=== PATIENT | female | born 1995 | race Caucasian/White ===

== ENCOUNTER 2021-03-30 10:31 | Emergency (ER) | payer OTHER, SELFPAY ==
[2021-03-30 10:46] VITALS: BP 112/72; PULSE 70; RESP 14; TEMP 36.7; O2SAT 97; BMI 26.6
--- NOTE | 2021-03-30 11:04 | ED_ITS ---
HPI - Abdominal Pain General Chief Complaint: Abdominal Pain Stated Complaint: stomach pain-right side, throwing up, cold sweats Time Seen by Provider: 03/30/21 10:50 Source: patient Mode of arrival: Ambulatory Limitations: no limitations History of Present Illness HPI narrative: 25-year-old female daily smoker with noncontributory medical history presents with a chief complaint of gradually worsening abdominal pain over the past day or 2. She states it started around her middle abdomen and now has settled in her right lower quadrant. It is worse when she moves and improves with rest. She denies any radiation of her pain. She denies any fever or chills. She has been nauseated but denies any vomiting. She denies any change in bowel habits such as constipation or diarrhea. She denies dysuria, frequency or urgency. She denies any vaginal bleeding or discharge. Last menstrual period was 2 weeks ago and normal. Related Data Previous Rx's Medication Instructions Recorded doxycycline hyclate 100 mg tablet 100 mg PO BID #20 tab 03/30/21 fluconazole 150 mg tablet 150 mg PO Q3D #2 tab 03/30/21 metronidazole 500 mg tablet 500 mg PO TID 10 Days #30 tab 03/30/21 Allergies Allergy/AdvReac Type Severity Reaction Status Date / Time No Known Drug Allergies Allergy Verified 03/30/21 10:49 Review of Systems Review of Systems Narrative: GENERAL: Denies chills, fatigue, malaise, fever, sweats. HEENT: Denies sinus pain, ear pain, sore throat, difficulty swallowing, dizziness. RESPIRATORY: Denies dyspnea, cough, wheezing, hemoptysis, sputum. CARDIOVASCULAR: Denies chest pain, palpitations, orthopnea, edema, GASTROINTESTINAL: See HPI : Denies dysuria, frequency, incontinence, hematuria, urinary retention. MUSCULOSKELETAL: denies weakness, joint pain, or bony pain SKIN: Denies rash, skin lesions, or other NEUROLOGIC: Denies weakness, headache, numbness, change in speech, confusion, seizures, incoordination. PSYCHIATRIC: No concerning psychosocial issues. Patient History Social History Smoking Status: Never smoker Smoking Status: Never smoker alcohol intake frequency: 0-2 drinks per day Substance Use Type: does not use Exam Narrative Exam Narrative: GENERAL: [26] year old patient appears stated age. Well-developed patient, in mild distress. HEAD: Atraumatic. Normocephalic. EYES: Pupils equal round and reactive. Extraocular motions intact. No scleral icterus. No injection or drainage. ENT: Nose without bleeding, purulent drainage. Throat without erythema, tons illar hypertrophy or exudate. Airway patent. NECK: Trachea midline. Non tender CARDIOVASCULAR: Regular rate and rhythm without murmurs, gallops, or rubs. RESPIRATORY: Clear to auscultation. Breath sounds equal bilaterally. No wheezes, rales, or rhonchi. GASTROINTESTINAL: Abdomen soft, tender in right lower quadrant with voluntary guarding and mild localized peritonitis. Positive Rovsing's and heel tap as well as obturator EXTREMITIES: No edema or joint tenderness. BACK: Nontender without deformity or crepitance. No flank tenderness. NEURO: AOx3. SKIN: No rash or erythema of visible areas Initial Vital Signs Initial Vital Signs: Vital Signs Temperature 98.1 F 03/30/21 10:46 Pulse Rate 70 03/30/21 10:46 Respiratory Rate 14 03/30/21 10:46 Blood Pressure 112/72 03/30/21 10:46 Pulse Oximetry 97 03/30/21 10:46 Course Orders Ordered: Discontinued Medications Ceftriaxone Sodium (Ceftriaxone 1,000 Mg Vial) 500 mg IV NOW ONE Stop: 03/30/21 15:16 Last Admin: 03/30/21 21:10 Dose: Not Given Documented by: FIGUEROA Sodium Chloride (Normal Saline 0.9%) 1,000 mls @ 1,000 mls/hr IV BOLUS ONE Stop: 03/30/21 12:33 Last Infusion: 03/30/21 12:49 Dose: 0 mls/hr Documented by: Admin: 03/30/21 11:50 Dose: 1,000 mls/hr Documented by: BETHANY Ceftriaxone Sodium 500 mg/ (Dextrose) 50 mls @ 100 mls/hr IV NOW ONE Stop: 03/30/21 15:07 Last Infusion: 03/30/21 15:34 Dose: 0 mls/hr Documented by: Admin: 03/30/21 15:22 Dose: 100 mls/hr Documented by: BETHANY Ondansetron HCl (Ondansetron 4 Mg/2 Ml Inj) 4 mg IV NOW ONE Stop: 03/30/21 10:50 Last Admin: 03/30/21 11:50 Dose: 4 mg Documented by: BETHANY Vital Signs Vital signs: Vital Signs - 8 hr 03/30/21 10:46 03/30/21 15:33 Temperature 98.1 F Pulse Rate 70 77 Respiratory Rate 14 16 Blood Pressure 112/72 123/74 Pulse Oximetry 97 97 MDM - Abdominal Pain Lab Data Result diagrams: 03/30/21 11:35 03/30/21 11:35 Labs: Lab Results 03/30/21 03/30/21 03/30/21 Range/Units 11:35 11:35 11:35 WBC 5.8 (4.5-11.0) X10^3/uL RBC 4.46 (4.0-5.2) X10^6/uL Hgb 13.4 (12.0-16.0) g/dL Hct 39.5 (36-46) % MCV 88.5 (80-100) fL MCH 30.0 (26-34) PG MCHC 33.8 (30-36) % RDW 13.5 (11.6-14.8) % Plt Count 279 (150-400) X10^3/uL Neut % (Auto) 71.7 (50-75) % Lymph % (Auto) 20.9 L (25-40) % Petroleum % (Auto) 3.9 (3-14) % Eos % (Auto) 2.3 (2-4) % Baso % (Auto) 1.2 (0-2) % Neut # (Auto) 4200 (8586-1822) /uL Lymph # (Auto) 1200 (2073-0620) /uL Petroleum # (Auto) 200 (0-900) /uL Eos # (Auto) 100 (0-450) /uL Baso # (Auto) 100 (0-100) /uL Sodium 139 (137-145) mmol/L Potassium 4.3 (3.4-5.1) mmol/L Chloride 106 (98-107) mmol/L Carbon Dioxide 26 (22-32) mmol/L BUN 11 (7-17) mg/dL Creatinine 0.57 (0.52-1.04) mg/dL Estimated GFR > 60.0 (>60) mL/min BUN/Creatinine Ratio 19.3 (6-22) Glucose 99 (70-100) mg/dL Calcium 9.7 (8.4-10.2) mg/dL Total Bilirubin 0.6 (0.2-1.3) mg/dL AST 28 (14-36) IU/L ALT 18 (<35) IU/L Alkaline Phosphatase 54 (38-126) U/L Total Protein 7.5 (6.3-8.2) g/dL Albumin 4.4 (3.5-5.0) g/dL Globulin 3.1 (1.7-4.1) g/dL Albumin/Globulin Ratio 1.4 (1.0-2.8) Lipase 36 (23-300) U/L Urine Color Yellow Urine Appearance Clear Urine pH 6.0 (4.5-8.0) Ur Specific [place] <=1.005 (1.000-1.035) Urine Protein Negative (Negative) Urine Glucose (UA) Negative (Negative) g/dL Urine Ketones Negative (NEGATIVE) Urine Occult Blood Negative (Negative) Urine Nitrate Negative (Negative) Urine Bilirubin Negative (NEGATIVE) Urine Urobilinogen 0.2 (0.2) E.U./dL Ur Leukocyte Esterase Negative (NEGATIVE) Urine RBC None seen (0-5/HPF) Urine WBC None seen (0-5/HPF) Urine Bacteria None seen (None) Ur Culture Indicated? Cult not indicated Micro UA Comment Microscopic normal Urine Test (Negative) Ur Chlamydia DNA (PCR) N gonorrhoeae DNA (PCR) 03/30/21 03/30/21 Range/Units 11:35 15:04 WBC (4.5-11.0) X10^3/uL RBC (4.0-5.2) X10^6/uL Hgb (12.0-16.0) g/dL Hct (36-46) % MCV (80-100) fL MCH (26-34) PG MCHC (30-36) % RDW (11.6-14.8) % Plt Count (150-400) X10^3/uL Neut % (Auto) (50-75) % Lymph % (Auto) (25-40) % Petroleum % (Auto) (3-14) % Eos % (Auto) (2-4) % Baso % (Auto) (0-2) % Neut # (Auto) (6009-0500) /uL Lymph # (Auto) (9771-5408) /uL Petroleum # (Auto) (0-900) /uL Eos # (Auto) (0-450) /uL Baso # (Auto) (0-100) /uL Sodium (137-145) mmol/L Potassium (3.4-5.1) mmol/L Chloride (98-107) mmol/L Carbon Dioxide (22-32) mmol/L BUN (7-17) mg/dL Creatinine (0.52-1.04) mg/dL Estimated GFR (>60) mL/min BUN/Creatinine Ratio (6-22) Glucose (70-100) mg/dL Calcium (8.4-10.2) mg/dL Total Bilirubin (0.2-1.3) mg/dL AST (14-36) IU/L ALT (<35) IU/L Alkaline Phosphatase (38-126) U/L Total Protein (6.3-8.2) g/dL Albumin (3.5-5.0) g/dL Globulin (1.7-4.1) g/dL Albumin/Globulin Ratio (1.0-2.8) Lipase (23-300) U/L Urine Color Urine Appearance Urine pH (4.5-8.0) Ur Specific [place] (1.000-1.035) Urine Protein (Negative) Urine Glucose (UA) (Negative) g/dL Urine Ketones (NEGATIVE) Urine Occult Blood (Negative) Urine Nitrate (Negative) Urine Bilirubin (NEGATIVE) Urine Urobilinogen (0.2) E.U./dL Ur Leukocyte Esterase (NEGATIVE) Urine RBC (0-5/HPF) Urine WBC (0-5/HPF) Urine Bacteria (None) Ur Culture Indicated? Micro UA Comment Urine Test Negative (Negative) Ur Chlamydia DNA (PCR) Cancelled N gonorrhoeae DNA (PCR) Cancelled Discharge Plan Departure Patient Disposition: Home Clinical Impression: Acute pelvic inflammatory disease (PID) Instructions: DI for Pelvic Inflammatory Disease (PID) Activity Restrictions/Additional Instructions: *You have been diagnosed with [right lower quadrant pain without evidence of ovarian problem, kidney stone or appendicitis. Your pelvic exam demonstrated discharge consistent with pelvic inflammatory disease] *What to do: *Please continue to take your regular medications as directed. [x] New medication prescriptions sent to your pharmacy: [[facility] ] [ ] New medication written as a paper prescription [ ] No new medications given *Please follow up with your primary care provider in 2-3 days, call for an appointment. Let them know you were seen in the Emergency Department and that we ask that you be seen in follow up. We will electronically transmit a record of today's note if your PCP is in our system NO SEXUAL INTERCOURSE until one week after treatment is complete Please inform sexual partners of the diagnosis *If you do not have a primary care provider please contact the [facility] Resource line at [phone]. They will ask some questions about your medical history and help get you set up with a doctor in the community. *Return to Emergency Department if you should have any new, worsening or concerning symptoms, such as [fever greater than 101 F, shaking chills, worsening pain, persistent vomiting or other bothersome symptoms] Prescriptions: New doxycycline hyclate 100 mg tablet 100 mg PO BID Qty: 20 RF: 0 metronidazole 500 mg tablet 500 mg PO TID 10 Days Qty: 30 RF: 0 fluconazole 150 mg tablet 150 mg PO Q3D Qty: 2 RF: 0 Stand Alone Forms: Work Release Note
[2021-03-30 11:41] LABS: Bacteria Urine None Seen; RBC Urine None Seen (0-5/HPF); WBC Urine None Seen (0-5/HPF)
[2021-03-30 11:42] LABS: Add Manual Diff / Slide Review NO; Basophils Absolute Auto 100 /uL (0-100); Basophils Percent Auto 1.2 % (0-2); Eosinophils Absolute Auto 100 /uL (0-450); Eosinophils Percent Auto 2.3 % (2-4); Hematocrit 39.5 % (36-46); Hemoglobin 13.4 g/dL (12.0-16.0); Lymphocytes Absolute Auto 1200 /uL (1100-4500); Lymphocytes Percent Auto 20.9 % (25-40); Mean Corpuscular HGB Conc 33.8 % (30-36); Mean Corpuscular Volume 88.5 fL (80-100); Monocytes Absolute Auto 200 /uL (0-900); Monocytes Percent Auto 3.9 % (3-14); Neutrophils Absolute Auto 4200 /uL (1500-7000); Neutrophils Percent Auto 71.7 % (50-75); Platelet Count 279 X10^3/uL (150-400); Red Blood Cell Count 4.46 X10^6/uL (4.0-5.2); Red Cell Distribution Width 13.5 % (11.6-14.8); White Blood Cell Count 5.8 X10^3/uL (4.5-11.0)
[2021-03-30 11:43] LABS: Appearance Urine UA CLEAR; Bilirubin Urine UA NEGATIVE (NEGATIVE); Color Urine UA YELLOW; Glucose Urine UA NEGATIVE (Negative); Ketones Urine UA NEGATIVE (NEGATIVE); Leukocyte Esterase Urine UA NEGATIVE (NEGATIVE); Nitrite Urine UA NEGATIVE (Negative); Occult Blood Urine UA NEGATIVE (Negative); Protein Urine UA NEGATIVE (Negative); Specific Gravity Urine UA <=1.005 (1.000-1.035); Urobilinogen Urine UA 0.2 E.U./dL (0.2)
[2021-03-30 11:47] LABS: Pregnancy Test Urine Negative (Negative)
[2021-03-30 11:50] LABS: Culture Indicated Urine Cult Not Indicated; Urine Comments Microscopic Normal
[2021-03-30] MEDS: ONDANSETRON 4 MG/2 ML INJ IV (11:50)
[2021-03-30] MEDS: SODIUM CHLORIDE 0.9% 1,000 ML 1000 ML IV (11:50)
[2021-03-30 11:54] LABS: Alanine Aminotransferase 18 IU/L (<35); Albumin 4.4 g/dL (3.5-5.0); Albumin Globulin Ratio 1.4 (1.0-2.8); Alkaline Phosphatase 54 U/L (38-126); Aspartate Aminotransferase 28 IU/L (14-36); BUN Creatinine Ratio 19.3 (6-22); Bilirubin Total 0.6 mg/dL (0.2-1.3); Blood Urea Nitrogen 11 mg/dL (7-17); Calcium 9.7 mg/dL (8.4-10.2); Carbon Dioxide 26 mmol/L (22-32); Chloride 106 mmol/L (98-107); Estimated Glomerular Filt Rate > 60.0 mL/min (>60); Globulin 3.1 g/dL (1.7-4.1); Glucose 99 mg/dL (70-100); HEMOLYSIS < 15 (0-50); Lipase 36 U/L (23-300); Potassium 4.3 mmol/L (3.4-5.1); Sodium 139 mmol/L (137-145); Total Protein 7.5 g/dL (6.3-8.2)
--- NOTE | 2021-03-30 12:02 | DI.CT.S_ITS ---
PROCEDURE: CT ABDOMEN PELVIS W CON INDICATIONS: severe RLQ pain TECHNIQUE: After the administration of intravenous contrast, axial sections acquired from the lung bases to the pubic symphysis. Coronal and sagittal reformats were performed. For radiation dose reduction, the following was used: automated exposure control, adjustment of mA and/or kV according to patient size. COMPARISON: None. FINDINGS: Image quality: Excellent. Lung bases: Unremarkable. Heart: Heart is normal in size. ABDOMEN: Liver: Unremarkable. Gallbladder: Unremarkable. Biliary ducts: Unremarkable. Pancreas: Unremarkable. Spleen: Unremarkable. Adrenal Glands: Unremarkable. Kidneys and Ureters: Unremarkable. Stomach and Bowel: Stomach, small bowel loops, and colon are unremarkable. The appendix is normal in appearance. Peritoneum: There is a small amount of free fluid in the pelvis which appears within physiologic limits. No free air. Ventral Wall: No hernias. Abdominal Nodes: No retroperitoneal or mesenteric adenopathy by size criteria. Vessels: Aorta and inferior vena cava are normal in size. PELVIS: Pelvic Organs: An IUD appears in appropriate position extending into the region of the fundal endometrium. The uterus and ovaries appear within normal size limits. Bladder: Unremarkable. Pelvic Nodes: No enlarged lymph nodes. Miscellaneous: No hernias are seen. Bones: Unremarkable. IMPRESSION: 1. No evidence of appendicitis or other definite acute intra-abdominal abnormality. 2. Small amount of free fluid in the pelvis which appears within physiologic limits. 3. IUD appears in appropriate position. Dictated by: Fredrick Morejon M.D. on 03/30/2021 at 12:29 Approved by: Fredrick Morejon M.D. on 03/30/2021 at 12:33
--- NOTE | 2021-03-30 12:47 | DI.US.S_ITS ---
PROCEDURE: US PELVIC COMPLETE INDICATIONS: RIGHT PELVIC PAIN TECHNIQUE: Real-time scanning was performed of the pelvic organs, with image documentation. Additional endovaginal scanning was necessary due to incomplete visualization of the adnexal and endometrial structures by transabdominal scanning. COMPARISON: None. FINDINGS: Uterus: Uterus is anteverted and normal in size at 8.3 x 3.8 x 5.5 cm. The endometrium measures seven mm in combined thickness. An IUD is situated appropriately in the fundal endometrium. Ovaries: The right ovary measures 2.1 x 3.6 x 1.9 cm. The left ovary measures 3.8 x 2.4 x 2.3 cm. Both ovaries demonstrate a normal follicular echotexture and color Doppler flow. No suspicious adnexal masses or paraovarian fluid. Other: No pathologic free abdominal or pelvic fluid. IMPRESSION: 1. IUD in appropriate position. 2. Normal ovaries. Dictated by: Kristan Perry M.D. on 03/30/2021 at 14:17 Approved by: Kristan Perry M.D. on 03/30/2021 at 14:19
[2021-03-30] MEDS: cefTRIAXone 500 MG in DEXTROSE 5 % IN WATER 50 ML 100 ML IV (15:22)
[2021-03-30 15:33] VITALS: BP 123/74; PULSE 77; RESP 16; O2SAT 97
[2021-04-01 20:36] LABS: Chlamydia trachomatis Positive (Negative); Mycoplasma genitalium Negative (Negative); Neisseria gonorrhoeae Negative (Negative)
== END 2021-03-30 15:34 | disposition home or self-care (01) ==
PROVIDERS: Emergency Provider Emergency Medicine
DX: N73.9 Female pelvic inflammatory disease, unspecified (principal); R11.0 Nausea; R10.31 Right lower quadrant pain
CPT/HCPCS: 36415; 74177; 76830; 76856; 80053; 81001; 81025; 83690; 85025; 87070; 87205; 87210; 87252; 87491; 87563; 87591; 96361; 96374; 96375; 99284; 99285; J0696; J2405; Q9967

== ENCOUNTER 2021-07-27 13:35 | Emergency (ER) | payer OTHER, SELFPAY ==
[2021-07-27 13:43] VITALS: BP 127/58; PULSE 78; RESP 16; TEMP 36.6; O2SAT 98; BMI 29.2
--- NOTE | 2021-07-27 14:07 | DI.US.S_ITS ---
PROCEDURE: US PELVIC COMPLETE INDICATIONS: PAIN TECHNIQUE: Real-time scanning was performed of the pelvic organs, with image documentation. Additional endovaginal scanning was necessary due to incomplete visualization of the adnexal and endometrial structures by transabdominal scanning. COMPARISON: [facility], US, US PELVIC COMPLETE, 03/30/2021, 13:24. FINDINGS: Uterus: Uterus is anteverted and normal in size at 6.9 x 4.2 x 3.4 cm. The myometrium is homogeneous. The endometrium measures 3 mm combined thickness. IUD is centered in the endometrial cavity. No fibroids seen. Ovaries: The ovaries have a normal sonographic appearance. Small ovarian follicles. Blood flow seen in both ovaries. No adnexal masses are seen. The right ovary measures 2.7 x 1.8 x 1.4 cm, with a calculated ovarian volume of 4 cc. The left ovary measures 2.7 x 2.6 x 2.4 cm, with a calculated ovarian volume of 9 cc. Other: No pathologic free abdominal or pelvic fluid. IMPRESSION: 1. Source of pelvic pain is not identified. 2. IUD is in the expected position. 3. No significant ovarian cysts. We strive to produce accurate, complete, and clear reports of imaging services. To assist us in improving patient care, this report was composed using standard report templates and voice recognition software. Therefore, it may contain abnormal punctuation, insertions and/or omissions. Occasional wrong-word or sound-alike substitutions may occur. Though we review the report and make efforts to correct it, we do recommend that the report be read carefully in proper context to recognize any text inaccuracies. Dictated by: Deshaun Olmos M.D. on 07/27/2021 at 14:41 Approved by: Deshaun Olmos M.D. on 07/27/2021 at 14:45
[2021-07-27] MEDS: KETOROLAC 30 MG/ML VIAL 15 MG IV (14:54)
[2021-07-27] MEDS: ONDANSETRON 4 MG/2 ML INJ IV (14:54)
[2021-07-27 15:14] LABS: Add Manual Diff / Slide Review NO; Basophils Absolute Auto 100 /uL (0-100); Basophils Percent Auto 1.2 % (0-2); Eosinophils Absolute Auto 100 /uL (0-450); Eosinophils Percent Auto 2.3 % (2-4); Hematocrit 38.9 % (36-46); Hemoglobin 13.4 g/dL (12.0-16.0); Lymphocytes Absolute Auto 1500 /uL (1100-4500); Lymphocytes Percent Auto 26.1 % (25-40); Mean Corpuscular HGB Conc 34.4 % (30-36); Mean Corpuscular Hemoglobin 30.1 PG (26-34); Mean Corpuscular Volume 87.7 fL (80-100); Monocytes Absolute Auto 300 /uL (0-900); Monocytes Percent Auto 5.3 % (3-14); Neutrophils Absolute Auto 3800 /uL (1500-7000); Neutrophils Percent Auto 65.1 % (50-75); Platelet Count 296 X10^3/uL (150-400); Red Blood Cell Count 4.43 X10^6/uL (4.0-5.2); Red Cell Distribution Width 13.4 % (11.6-14.8); White Blood Cell Count 5.9 X10^3/uL (4.5-11.0)
--- NOTE | 2021-07-27 15:29 | DI.CT.S_ITS ---
PROCEDURE: CT ABDOMEN PELVIS W CON INDICATIONS: ? appy, lower abd pain TECHNIQUE: After the administration of oral and IV contrast, axial sections were acquired from the lung bases to the pubic symphysis. Coronal and sagittal reformats were performed. For radiation dose reduction, the following was used: automated exposure control, adjustment of mA and/or kV according to patient size. COMPARISON: [facility], US, US PELVIC COMPLETE, 07/27/2021, 14:21. [facility], CT, CT ABDOMEN PELVIS W CON, 03/30/2021, 12:08. FINDINGS: Image quality: Excellent. Lung bases: Unremarkable. Heart: No significant findings. ABDOMEN: Liver: Focal fatty infiltration at the falciform ligament.. Gallbladder: Mildly prominent. No calcified gallstones. Biliary ducts: Unremarkable. Pancreas: Unremarkable. Spleen: No splenomegaly. Small splenule. Adrenal Glands: No nodule. Kidneys and Ureters: No hydronephrosis. Stomach and Bowel: Stomach, small bowel loops, and colon are unremarkable. The appendix is at the upper limits of normal in caliber measuring 0.7 cm, (2/59). There is air within the appendix near its base. The tip is less well evaluated due to adjacent bowel. However, no obvious periappendiceal fat stranding. No periappendiceal fluid collection. Peritoneum: No abnormal intraperitoneal fluid. No free air. Ventral Wall: No hernia. Abdominal Nodes: No retroperitoneal or mesenteric adenopathy by size criteria. Small lymph nodes in the right lower quadrant. This could be within normal limits in this younger patient. Vessels: Aorta and inferior vena cava are normal in size. PELVIS: Pelvic Organs: Anteverted uterus. IUD centered in the uterus. Trace free fluid in the pelvic cul-de-sac. Bladder: Mildly distended. Pelvic Nodes: No enlarged lymph nodes. Miscellaneous: No inguinal hernias are seen. Bones: No focal lesion. Right L5 sacralization. IMPRESSION: 1. The appendix is at the upper limits of normal in caliber. No convincing acute inflammatory changes identified. 2. No small bowel obstruction. Dictated by: Deshaun Olmos M.D. on 07/27/2021 at 16:52 Approved by: Deshaun Olmos M.D. on 07/27/2021 at 17:00
--- NOTE | 2021-07-27 15:30 | PC.NURSE ---
Pt walking around room bracing stomach and crying in pain, states pain is worsening and this is similar to what happened about a month ago when she had similar pain. Coached pt in holding pillow as a brace to pain and provided warm blankets to place on abdomen. Derrick BARRY notified.
[2021-07-27 15:33] LABS: Alanine Aminotransferase 32 IU/L (<35); Albumin 4.8 g/dL (3.5-5.0); Albumin Globulin Ratio 1.7 (1.0-2.8); Alkaline Phosphatase 56 U/L (38-126); Aspartate Aminotransferase 31 IU/L (14-36); BUN Creatinine Ratio 16.9 (6-22); Bilirubin Total 0.7 mg/dL (0.2-1.3); Blood Urea Nitrogen 12 mg/dL (7-17); Calcium 9.8 mg/dL (8.4-10.2); Carbon Dioxide 23 mmol/L (22-32); Chloride 104 mmol/L (98-107); Estimated Glomerular Filt Rate > 60.0 mL/min (>60); Globulin 2.9 g/dL (1.7-4.1); Glucose 98 mg/dL (70-100); HEMOLYSIS < 15 (0-50); Lipase 44 U/L (23-300); Potassium 3.8 mmol/L (3.4-5.1); Sodium 137 mmol/L (137-145); Total Protein 7.7 g/dL (6.3-8.2)
[2021-07-27] MEDS: MORPHINE 4 MG/ML INJ IV (15:33)
[2021-07-27 15:37] LABS: C-Reactive Protein Quant < 0.5 mg/dL (<1.0)
[2021-07-27 15:52] LABS: Erythrocyte Sedimentation Rate 5 MM/HR (0-20)
[2021-07-27] MEDS: HYDROMORPHONE 0.5 MG INJ IV (16:13)
--- NOTE | 2021-07-27 16:30 | PC.NURSE ---
Pt sitting on stretcher, states pain has improved since medication but she feels it returning. States she is unable to attempt void r/t pain. Educated on importance of collecting sample r/t plan of care.
[2021-07-27 16:32] LABS: HCG Quantitative /Beta subunit < 2.4 mIU/mL
[2021-07-27 16:50] VITALS: BP 112/68; PULSE 67; RESP 15; O2SAT 95
--- NOTE | 2021-07-27 17:29 | ED_ITS ---
HPI - Abdominal Pain <Kulwant Meza PA-C - Last Filed: 07/27/21 20:42> General Chief Complaint: Abdominal Pain Stated Complaint: stomach pain in lower abdomin Time Seen by Provider: 07/27/21 13:39 Source: patient Mode of arrival: Ambulatory History of Present Illness HPI narrative: 25-year-old female with no reported past medical history presents to the ED with 1 day lower abdominal pain. Patient states sudden onset of lower abdominal pain this morning. Endorses mild nausea. Patient has an IUD in. Patient states that she has had the same type of abdominal pain before with a negative workup, which was responsive to dilaudid. Patient endorses prior history of chlamydia for which she was treated before. Would like to be tested for HIV, gonorrhea and chlamydia, bacterial vaginosis, candidiasis. Patient denies fever, chills, chest pain, shortness of breath, cough, vomiting, dysuria, flank pain, lighthe adedness, dizziness, syncope. Related Data Previous Rx's Medication Instructions Recorded doxycycline hyclate 100 mg tablet 100 mg PO BID #20 tab 03/30/21 fluconazole 150 mg tablet 150 mg PO Q3D #2 tab 03/30/21 Allergies Allergy/AdvReac Type Severity Reaction Status Date / Time No Known Drug Allergies Allergy Verified 07/27/21 13:45 Review of Systems <Kulwant Meza PA-C - Last Filed: 07/27/21 20:42> Review of Systems ROS Unobtainable: All systems reviewed & are unremarkable except as noted in HPI and below Constitutional Constitutional: Denies chills, Denies fatigue, Denies fever(s), Denies frequent falls, Denies lethargy and Denies weakness Eyes Eyes: Denies change in vision, Denies eye discharge, Denies irritation and Denies loss of vision ENT Ears, Nose, Mouth, and Throat: Denies change in voice, Denies dizziness, Denies neck pain, Denies sore throat and Denies throat swelling Cardiovascular Cardiovascular: Denies chest pain, Denies irregular heart rhythm, Denies lightheadedness, Denies palpitations, Denies dyspnea, Denies dyspnea on exertion and Denies orthopnea Respiratory Respiratory: Denies cough, Denies dyspnea, Denies dyspnea on exertion and Denies wheezing Gastrointestinal Gastrointestinal: Reports abdominal pain, Denies change in bowel habits, Denies diarrhea, Denies nausea and Denies vomiting Genitourinary Genitourinary: Denies hematuria, Denies flank pain, Denies urinary incontinence and Denies urinary urgency Musculoskeletal Musculoskeletal: Denies back pain, Denies muscle weakness, Denies neck pain, Denies numbness and Denies tingling Integumentary/Breasts Skin/Breast: Denies pruritus, Denies erythema, Denies rash and Denies wounds Neurologic Neurologic: Denies behavioral changes, Denies confusion, Denies dizziness, Denies frequent falls, Denies loss of vision, Denies numbness, Denies tingling and Denies weakness Psychiatric Psychiatric: Denies anxiety, Denies behavioral changes, Denies confusion, Denies depression, Denies homicidal ideation and Denies suicidal ideation Endocrine Endocrine: Denies fatigue, Denies flushing and Denies palpitations Hematologic/Lymphatic Hematologic/Lymphatic: Denies easy bruising Allergic/Immunologic Allergic/Immunologic: Denies urticaria, Denies throat swelling and Denies wheezing Patient History <Kulwant Meza PA-C - Last Filed: 07/27/21 20:42> Social History Smoking Status: Never smoker Smoking Status: Never smoker alcohol intake frequency: 0-2 drinks per day Substance Use Type: does not use Exam <Kulwant Meza PA-C - Last Filed: 07/27/21 20:42> Initial Vital Signs Initial Vital Signs: Vital Signs Temperature 97.8 F 07/27/21 13:43 Pulse Rate 78 07/27/21 13:43 Respiratory Rate 16 07/27/21 13:43 Blood Pressure 127/58 L 07/27/21 13:43 Pulse Oximetry 98 07/27/21 13:43 Const General: cooperative and healthy appearing [facility] Head: normal to inspection Eyes General: appearance normal, both eyes and all related structures Neck Neck: normal visual inspection Chest Chest: normal inspection of the chest Resp Effort & Inspection: normal respiratory effort Auscultation: clear to auscultation bilaterally Cardio Rate: regular rate Rhythm: regular rhythm GI Inspection: normal to inspection Other: Abdomen is soft, nondistended, tender to palpation in the lower quadrants General: No CVA tenderness External Female Exam: normal external appearance Speculum Exam - Vagina: normal appearance of the vagina, no lacerations, no lesions and No vaginal bleeding Speculum Exam - Cervix: normal appearance of the cervix (IUD string visualized) and nontender Bimanual Exam- Vagina & Uterus: normal bimanual exam, No tender and no cervical motion tenderness Bimanual Exam- Adnexa, other: normal adnexae OB/External & Speculum: No vaginal bleeding Skin General: no rashes or lesions noted Neuro General: patient alert, patient awake and patient oriented x3 Extrem General: normal to inspection and full ROM <Guru Norwood DO - Last Filed: 07/28/21 07:09> Initial Vital Signs Initial Vital Signs: Vital Signs Temperature 97.8 F 07/27/21 13:43 Pulse Rate 78 07/27/21 13:43 Respiratory Rate 16 07/27/21 13:43 Blood Pressure 127/58 L 07/27/21 13:43 Pulse Oximetry 98 07/27/21 13:43 Course <Kulwant Meza PA-C - Last Filed: 07/27/21 20:42> Course Course Narrative: Labs within normal limits, UA negative, hCG negative. Patient's symptoms improved after Toradol, morphine, Dilaudid. Ultrasound pelvis, CT abdomen pelvis without acute findings. CT AP does show a appendix at the upper end of normal, without any surrounding signs of inflammation. Discussed ED return precautions with patient, discharged patient. Patient verbalized understanding. Orders Ordered: Discontinued Medications Hydromorphone HCl (Hydromorphone 0.5 Mg Inj) 0.5 mg IV NOW ONE Stop: 07/27/21 16:04 Last Admin: 07/27/21 16:13 Dose: 0.5 mg Documented by: ERVIN Ketorolac Tromethamine (Ketorolac 30 Mg/Ml Vial) 15 mg IV NOW ONE Stop: 07/27/21 14:10 Last Admin: 07/27/21 14:54 Dose: 15 mg Documented by: DYLAN Morphine Sulfate (Morphine 4 Mg/Ml Inj) 4 mg IV NOW ONE Stop: 07/27/21 15:30 Last Admin: 07/27/21 15:33 Dose: 4 mg Documented by: DYLAN Ondansetron HCl (Ondansetron 4 Mg/2 Ml Inj) 4 mg IV NOW ONE Stop: 07/27/21 14:10 Last Admin: 07/27/21 14:54 Dose: 4 mg Documented by: DYLAN Vital Signs Vital signs: Vital Signs - 8 hr 07/27/21 13:43 07/27/21 16:50 07/27/21 17:35 Temperature 97.8 F Pulse Rate 78 67 70 Respiratory Rate 16 15 16 Blood Pressure 127/58 L 112/68 128/66 Pulse Oximetry 98 95 97 <Guru Norwood DO - Last Filed: 07/28/21 07:09> Orders Ordered: Discontinued Medications Hydromorphone HCl (Hydromorphone 0.5 Mg Inj) 0.5 mg IV NOW ONE Stop: 07/27/21 16:04 Last Admin: 07/27/21 16:13 Dose: 0.5 mg Documented by: ERVIN Ketorolac Tromethamine (Ketorolac 30 Mg/Ml Vial) 15 mg IV NOW ONE Stop: 07/27/21 14:10 Last Admin: 07/27/21 14:54 Dose: 15 mg Documented by: DYLAN Morphine Sulfate (Morphine 4 Mg/Ml Inj) 4 mg IV NOW ONE Stop: 07/27/21 15:30 Last Admin: 07/27/21 15:33 Dose: 4 mg Documented by: DYLAN Ondansetron HCl (Ondansetron 4 Mg/2 Ml Inj) 4 mg IV NOW ONE Stop: 07/27/21 14:10 Last Admin: 07/27/21 14:54 Dose: 4 mg Documented by: DYLAN Vital Signs Vital signs: Vital Signs - 8 hr 07/27/21 13:43 07/27/21 16:50 07/27/21 17:35 Temperature 97.8 F Pulse Rate 78 67 70 Respiratory Rate 16 15 16 Blood Pressure 127/58 L 112/68 128/66 Pulse Oximetry 98 95 97 MDM - Abdominal Pain <Kulwant Meza PA-C - Last Filed: 07/27/21 20:42> Lab Data Lab results narrative: Labs within normal limits, UA negative, hCG negative Result diagrams: 07/27/21 15:00 07/27/21 15:00 Labs: Lab Results 07/27/21 07/27/21 07/27/21 Range/Units 15:00 15:00 15:00 WBC 5.9 (4.5-11.0) X10^3/uL RBC 4.43 (4.0-5.2) X10^6/uL Hgb 13.4 (12.0-16.0) g/dL Hct 38.9 (36-46) % MCV 87.7 (80-100) fL MCH 30.1 (26-34) PG MCHC 34.4 (30-36) % RDW 13.4 (11.6-14.8) % Plt Count 296 (150-400) X10^3/uL Neut % (Auto) 65.1 (50-75) % Lymph % (Auto) 26.1 (25-40) % [place] % (Auto) 5.3 (3-14) % Eos % (Auto) 2.3 (2-4) % Baso % (Auto) 1.2 (0-2) % Neut # (Auto) 3800 (9239-5034) /uL Lymph # (Auto) 1500 (0551-0060) /uL [place] # (Auto) 300 (0-900) /uL Eos # (Auto) 100 (0-450) /uL Baso # (Auto) 100 (0-100) /uL ESR (0-20) MM/HR Sodium 137 (137-145) mmol/L Potassium 3.8 (3.4-5.1) mmol/L Chloride 104 (98-107) mmol/L Carbon Dioxide 23 (22-32) mmol/L BUN 12 (7-17) mg/dL Creatinine 0.71 (0.52-1.04) mg/dL Estimated GFR > 60.0 (>60) mL/min BUN/Creatinine Ratio 16.9 (6-22) Glucose 98 (70-100) mg/dL Calcium 9.8 (8.4-10.2) mg/dL Total Bilirubin 0.7 (0.2-1.3) mg/dL AST 31 (14-36) IU/L ALT 32 (<35) IU/L Alkaline Phosphatase 56 (38-126) U/L C-Reactive Protein (<1.0) mg/dL Total Protein 7.7 (6.3-8.2) g/dL Albumin 4.8 (3.5-5.0) g/dL Globulin 2.9 (1.7-4.1) g/dL Albumin/Globulin Ratio 1.7 (1.0-2.8) Lipase 44 (23-300) U/L HCG, Quant mIU/mL Ur Chlamydia DNA (PCR) HIV 1&2 Ab/P24 Ag 4thGn Negative (NEGATIVE) N gonorrhoeae DNA (PCR) 07/27/21 07/27/21 07/27/21 Range/Units 15:00 15:00 15:00 WBC (4.5-11.0) X10^3/uL RBC (4.0-5.2) X10^6/uL Hgb (12.0-16.0) g/dL Hct (36-46) % MCV (80-100) fL MCH (26-34) PG MCHC (30-36) % RDW (11.6-14.8) % Plt Count (150-400) X10^3/uL Neut % (Auto) (50-75) % Lymph % (Auto) (25-40) % [place] % (Auto) (3-14) % Eos % (Auto) (2-4) % Baso % (Auto) (0-2) % Neut # (Auto) (5402-5465) /uL Lymph # (Auto) (0042-3059) /uL [place] # (Auto) (0-900) /uL Eos # (Auto) (0-450) /uL Baso # (Auto) (0-100) /uL ESR 5 (0-20) MM/HR Sodium (137-145) mmol/L Potassium (3.4-5.1) mmol/L Chloride (98-107) mmol/L Carbon Dioxide (22-32) mmol/L BUN (7-17) mg/dL Creatinine (0.52-1.04) mg/dL Estimated GFR (>60) mL/min BUN/Creatinine Ratio (6-22) Glucose (70-100) mg/dL Calcium (8.4-10.2) mg/dL Total Bilirubin (0.2-1.3) mg/dL AST (14-36) IU/L ALT (<35) IU/L Alkaline Phosphatase (38-126) U/L C-Reactive Protein < 0.5 (<1.0) mg/dL Total Protein (6.3-8.2) g/dL Albumin (3.5-5.0) g/dL Globulin (1.7-4.1) g/dL Albumin/Globulin Ratio (1.0-2.8) Lipase (23-300) U/L HCG, Quant < 2.4 mIU/mL Ur Chlamydia DNA (PCR) HIV 1&2 Ab/P24 Ag 4thGn (NEGATIVE) N gonorrhoeae DNA (PCR) 07/27/21 Range/Units 17:03 WBC (4.5-11.0) X10^3/uL RBC (4.0-5.2) X10^6/uL Hgb (12.0-16.0) g/dL Hct (36-46) % MCV (80-100) fL MCH (26-34) PG MCHC (30-36) % RDW (11.6-14.8) % Plt Count (150-400) X10^3/uL Neut % (Auto) (50-75) % Lymph % (Auto) (25-40) % [place] % (Auto) (3-14) % Eos % (Auto) (2-4) % Baso % (Auto) (0-2) % Neut # (Auto) (7463-9375) /uL Lymph # (Auto) (7272-8154) /uL [place] # (Auto) (0-900) /uL Eos # (Auto) (0-450) /uL Baso # (Auto) (0-100) /uL ESR (0-20) MM/HR Sodium (137-145) mmol/L Potassium (3.4-5.1) mmol/L Chloride (98-107) mmol/L Carbon Dioxide (22-32) mmol/L BUN (7-17) mg/dL Creatinine (0.52-1.04) mg/dL Estimated GFR (>60) mL/min BUN/Creatinine Ratio (6-22) Glucose (70-100) mg/dL Calcium (8.4-10.2) mg/dL Total Bilirubin (0.2-1.3) mg/dL AST (14-36) IU/L ALT (<35) IU/L Alkaline Phosphatase (38-126) U/L C-Reactive Protein (<1.0) mg/dL Total Protein (6.3-8.2) g/dL Albumin (3.5-5.0) g/dL Globulin (1.7-4.1) g/dL Albumin/Globulin Ratio (1.0-2.8) Lipase (23-300) U/L HCG, Quant mIU/mL Ur Chlamydia DNA (PCR) Not detected HIV 1&2 Ab/P24 Ag 4thGn (NEGATIVE) N gonorrhoeae DNA (PCR) Not detected Point of care testing: Urine Dip Bedside Urine Glucose Negative Bedside Urine Bilirubin - Negative Bedside Urine Ketone - Negative Urine Specific Purdin 1.015 Bedside Urine Occult Blood - Negative Bedside Urine pH 6.0 Bedside Urine Protein - Negative Bedside Urine Urobilinogen - Negative Bedside Urine Nitrite - Negative Bedside Urine Leukocytes - Negative Esterase Imaging Data US - [employer] TECHNICIAN: Radiologist's Impression: PROCEDURE:? US PELVIC COMPLETE ? INDICATIONS:? PAIN ? TECHNIQUE:? Real-time scanning was performed of the pelvic organs, with image documentation.? Additional endovaginal scanning was necessary due to incomplete visualization of the adnexal and endometrial structures by transabdominal scanning.? ? COMPARISON:[facility], , US PELVIC COMPLETE, 03/30/2021, 13:24. ? FINDINGS:? ?? Uterus:? Uterus is anteverted and normal in size at 6.9 x 4.2 x 3.4 cm. The myometrium is homogeneous. ? The endometrium measures 3 mm combined thickness.? IUD is centered in the endometrial cavity.? No fibroids seen. ? Ovaries:? The ovaries have a normal sonographic appearance.? Small ovarian follicles.? Blood flow seen in both ovaries.? No adnexal masses are seen. ? The right ovary measures 2.7 x 1.8 x 1.4 cm, with a calculated ovarian volume of 4 cc. The left ovary measures 2.7 x 2.6 x 2.4 cm, with a calculated ovarian volume of 9 cc. ? Other:? No pathologic free abdominal or pelvic fluid. ? ? IMPRESSION:? ? 1. Source of pelvic pain is not identified. ? 2. IUD is in the expected position. ? 3. No significant ovarian cysts. ? ? ? We strive to produce accurate, complete, and clear reports of imaging services. To assist us in improving patient care, this report was composed using standard report templates and voice recognition software. Therefore, it may contain abnormal punctuation, insertions and/or omissions. Occasional wrong-word or sound-alike substitutions may occur. Though we review the report and make efforts to correct it, we do recommend that the report be read carefully in proper context to recognize any text inaccuracies. ? ? Dictated by: Deshaun Olmos M.D. on 07/27/2021 at 14:41 ? ? Approved by: Deshaun Olmos M.D. on 07/27/2021 at 14:45 ? CT scan - abdomen/pelvis: Radiologist's Impression: PROCEDURE:? CT ABDOMEN PELVIS W CON ? INDICATIONS:? ? appy, lower abd pain ? TECHNIQUE:? After the administration of oral and IV contrast, axial sections were acquired from the lung bases to the pubic symphysis.? Coronal and sagittal reformats were per formed.? For radiation dose reduction, the following was used:? automated exposure control, adjustment of mA and/or kV according to patient size. ? COMPARISON:? [facility], US, US PELVIC COMPLETE, 07/27/2021, 14:21.? [facility], CT, CT ABDOMEN PELVIS W CON, 03/30/2021, 12:08. ? FINDINGS:? Image quality:? Excellent.? ? Lung bases:? Unremarkable.? ? Heart:? No significant findings. ? ? ABDOMEN: Liver:? Focal fatty infiltration at the falciform ligament..? ? Gallbladder:? Mildly prominent.? No calcified gallstones.? ? Biliary ducts:? Unremarkable.? ? Pancreas:? Unremarkable.? ? Spleen:? No splenomegaly.? Small splenule.? ? Adrenal Glands:? No nodule.? ? Kidneys and Ureters:? No hydronephrosis. ? Stomach and Bowel:? Stomach, small bowel loops, and colon are unremarkable.? The appendix is at the upper limits of normal in caliber measuring 0.7 cm, (2/59).? There is air within the appendix near its base.? The tip is less well evaluated due to adjacent bowel. ?However, no obvious periappendiceal fat stranding.? No periappendiceal fluid collection. Peritoneum:? No abnormal intraperitoneal fluid.? No free air.? ? Ventral Wall: ? No hernia.? Abdominal Nodes:? No retroperitoneal or mesenteric adenopathy by size criteria.? Small lymph nodes in the right lower quadrant.? This could be within normal limits in this younger patient.? Vessels:? Aorta and inferior vena cava are normal in size.? ? PELVIS: Pelvic Organs:? Anteverted uterus.? IUD centered in the uterus.? Trace free fluid in the pelvic cul-de-sac.? ? Bladder:? Mildly distended.? ? Pelvic Nodes: No enlarged lymph nodes.? Miscellaneous: No inguinal hernias are seen. ? ? ? Bones:? No focal lesion.? Right L5 sacralization. ? ? IMPRESSION:? 1. The appendix is at the upper limits of normal in caliber.? No convincing acute inflammatory changes identified. ? 2. No small bowel obstruction.? ? Dictated by: Deshaun Olmos M.D. on 07/27/2021 at 16:52 ? ? Approved by: Deshaun Olmos M.D. on 07/27/2021 at 17:00 ? MDM Narrative Medical decision making narrative: 25-year-old female with no reported past medical history presents to the ED with 1 day lower abdominal pain. Concern for ectopic versus ovarian torsion versus ruptured ovarian cyst versus PID versus appendicitis. Will order labs, UA, ultrasound pelvis. Will order CT abdomen pelvis if ultrasound negative. Will treat symptomswith Toradol, Zofran. Will reassess. <Guru Norwood DO - Last Filed: 07/28/21 07:09> Lab Data Labs: Lab Results 07/27/21 07/27/21 07/27/21 Range/Units 15:00 15:00 15:00 WBC 5.9 (4.5-11.0) X10^3/uL RBC 4.43 (4.0-5.2) X10^6/uL Hgb 13.4 (12.0-16.0) g/dL Hct 38.9 (36-46) % MCV 87.7 (80-100) fL MCH 30.1 (26-34) PG MCHC 34.4 (30-36) % RDW 13.4 (11.6-14.8) % Plt Count 296 (150-400) X10^3/uL Neut % (Auto) 65.1 (50-75) % Lymph % (Auto) 26.1 (25-40) % [place] % (Auto) 5.3 (3-14) % Eos % (Auto) 2.3 (2-4) % Baso % (Auto) 1.2 (0-2) % Neut # (Auto) 3800 (3463-8186) /uL Lymph # (Auto) 1500 (3103-5242) /uL [place] # (Auto) 300 (0-900) /uL Eos # (Auto) 100 (0-450) /uL Baso # (Auto) 100 (0-100) /uL ESR (0-20) MM/HR Sodium 137 (137-145) mmol/L Potassium 3.8 (3.4-5.1) mmol/L Chloride 104 (98-107) mmol/L Carbon Dioxide 23 (22-32) mmol/L BUN 12 (7-17) mg/dL Creatinine 0.71 (0.52-1.04) mg/dL Estimated GFR > 60.0 (>60) mL/min BUN/Creatinine Ratio 16.9 (6-22) Glucose 98 (70-100) mg/dL Calcium 9.8 (8.4-10.2) mg/dL Total Bilirubin 0.7 (0.2-1.3) mg/dL AST 31 (14-36) IU/L ALT 32 (<35) IU/L Alkaline Phosphatase 56 (38-126) U/L C-Reactive Protein (<1.0) mg/dL Total Protein 7.7 (6.3-8.2) g/dL Albumin 4.8 (3.5-5.0) g/dL Globulin 2.9 (1.7-4.1) g/dL Albumin/Globulin Ratio 1.7 (1.0-2.8) Lipase 44 (23-300) U/L HCG, Quant mIU/mL Ur Chlamydia DNA (PCR) HIV 1&2 Ab/P24 Ag 4thGn Negative (NEGATIVE) N gonorrhoeae DNA (PCR) 07/27/21 07/27/21 07/27/21 Range/Units 15:00 15:00 15:00 WBC (4.5-11.0) X10^3/uL RBC (4.0-5.2) X10^6/uL Hgb (12.0-16.0) g/dL Hct (36-46) % MCV (80-100) fL MCH (26-34) PG MCHC (30-36) % RDW (11.6-14.8) % Plt Count (150-400) X10^3/uL Neut % (Auto) (50-75) % Lymph % (Auto) (25-40) % [place] % (Auto) (3-14) % Eos % (Auto) (2-4) % Baso % (Auto) (0-2) % Neut # (Auto) (2319-2688) /uL Lymph # (Auto) (2565-7385) /uL [place] # (Auto) (0-900) /uL Eos # (Auto) (0-450) /uL Baso # (Auto) (0-100) /uL ESR 5 (0-20) MM/HR Sodium (137-145) mmol/L Potassium (3.4-5.1) mmol/L Chloride (98-107) mmol/L Carbon Dioxide (22-32) mmol/L BUN (7-17) mg/dL Creatinine (0.52-1.04) mg/dL Estimated GFR (>60) mL/min BUN/Creatinine Ratio (6-22) Glucose (70-100) mg/dL Calcium (8.4-10.2) mg/dL Total Bilirubin (0.2-1.3) mg/dL AST (14-36) IU/L ALT (<35) IU/L Alkaline Phosphatase (38-126) U/L C-Reactive Protein < 0.5 (<1.0) mg/dL Total Protein (6.3-8.2) g/dL Albumin (3.5-5.0) g/dL Globulin (1.7-4.1) g/dL Albumin/Globulin Ratio (1.0-2.8) Lipase (23-300) U/L HCG, Quant < 2.4 mIU/mL Ur Chlamydia DNA (PCR) HIV 1&2 Ab/P24 Ag 4thGn (NEGATIVE) N gonorrhoeae DNA (PCR) 07/27/21 Range/Units 17:03 WBC (4.5-11.0) X10^3/uL RBC (4.0-5.2) X10^6/uL Hgb (12.0-16.0) g/dL Hct (36-46) % MCV (80-100) fL MCH (26-34) PG MCHC (30-36) % RDW (11.6-14.8) % Plt Count (150-400) X10^3/uL Neut % (Auto) (50-75) % Lymph % (Auto) (25-40) % [place] % (Auto) (3-14) % Eos % (Auto) (2-4) % Baso % (Auto) (0-2) % Neut # (Auto) (0334-9138) /uL Lymph # (Auto) (4959-6814) /uL [place] # (Auto) (0-900) /uL Eos # (Auto) (0-450) /uL Baso # (Auto) (0-100) /uL ESR (0-20) MM/HR Sodium (137-145) mmol/L Potassium (3.4-5.1) mmol/L Chloride (98-107) mmol/L Carbon Dioxide (22-32) mmol/L BUN (7-17) mg/dL Creatinine (0.52-1.04) mg/dL Estimated GFR (>60) mL/min BUN/Creatinine Ratio (6-22) Glucose (70-100) mg/dL Calcium (8.4-10.2) mg/dL Total Bilirubin (0.2-1.3) mg/dL AST (14-36) IU/L ALT (<35) IU/L Alkaline Phosphatase (38-126) U/L C-Reactive Protein (<1.0) mg/dL Total Protein (6.3-8.2) g/dL Albumin (3.5-5.0) g/dL Globulin (1.7-4.1) g/dL Albumin/Globulin Ratio (1.0-2.8) Lipase (23-300) U/L HCG, Quant mIU/mL Ur Chlamydia DNA (PCR) Not detected HIV 1&2 Ab/P24 Ag 4thGn (NEGATIVE) N gonorrhoeae DNA (PCR) Not detected Point of care testing: Urine Dip Bedside Urine Glucose Negative Bedside Urine Bilirubin - Negative Bedside Urine Ketone - Negative Urine Specific Purdin 1.015 Bedside Urine Occult Blood - Negative Bedside Urine pH 6.0 Bedside Urine Protein - Negative Bedside Urine Urobilinogen - Negative Bedside Urine Nitrite - Negative Bedside Urine Leukocytes - Negative Esterase Discharge Plan Departure Patient Disposition: Home Clinical Impression: Abdominal pain Instructions: DI for Abdominal Pain-Adult Activity Restrictions/Additional Instructions: You were evaluated in the ED today for abdominal pain. Your ultrasound and CT did not show evidence of acute findings. Your appendix was found to be at the upper end of normal in size, which does not indicate acute appendicitis, however could be early appendicitis. Will be notified of urine gonorrhea and chlamydia test the the next 2 days. You may take Tylenol and ibuprofen for your symptoms. Please return to the ED if your symptoms worsen, you develop fever, chills, nausea, vomiting. Prescriptions: No Action doxycycline hyclate 100 mg tablet 100 mg PO BID Qty: 20 0RF fluconazole 150 mg tablet 150 mg PO Q3D Qty: 2 0RF Rx Instructions: may repeat second dose 72 hrs after first dose if symptoms persist <Guru Norwood, DO - Last Filed: 07/28/21 07:09> Cosign ED Attending Cosignature Attestation: Dr Norwood Co-Sign Statement: I was available for consultation during this patient's emergency department visit. This chart is signed by myself for administrative purposes only. I did not have direct contact with this patient during this visit. They were seen independently by the APC.
[2021-07-27 17:35] VITALS: BP 128/66; PULSE 70; RESP 16; O2SAT 97
[2021-07-27 17:52] LABS: HIV 1 & 2 Ab/Ag 4th Gen Combo NEGATIVE (NEGATIVE)
[2021-07-27 18:41] LABS: Urine N gonorrhoeae NOT DETECTED
[2021-07-27 18:56] LABS: Urine Chlamydia NOT DETECTED
== END 2021-07-27 17:40 | disposition home or self-care (01) ==
PROVIDERS: Emergency Provider Student in an Organized Health Care Education/Training Program
DX: R10.30 Lower abdominal pain, unspecified (principal)
CPT/HCPCS: 36415; 74177; 76830; 76856; 80053; 81003; 83690; 84702; 85025; 85651; 86140; 87070; 87077; 87081; 87147; 87210; 87389; 87491; 87591; 96374; 96375; 99284; J1170; J1885; J2270; J2405; Q9967